=== PATIENT | male | born 1960 | race Caucasian/White ===

== ENCOUNTER 2017-01-11 10:29 | Emergency (ER) | payer BC ==
--- NOTE | 2017-01-11 11:22 | EDPHY ---
H & P Stated Complaint: seizure today/worked up for dizzyness/inner ear /was in [place] over weekend Time Seen by Provider: 01/11/17 11:19 HPI/ROS: HPI: 56-year-old male presents to emergency department with chief concern dizziness and concern for seizure. At work 1 hour prior to arrival he felt the whole room spin while seated, "my eyes felt like a slot machine going backward in my head, my face turned white, my hands turned deep purple and I got flushed. " Reports his entire body "straightened out". There was no loss of consciousness. He remembers the entire event however was "unable to see anything." This was witnessed by coworkers. Event lasted 30-45 seconds. Has had 1 year of dizziness he describes as room spinning 24/7, every day, worse with position change. ENT performed MRI of the head in the fall and has performed other workup including a inner ear stimulation test. Reports 3 hours of nausea, vomiting, diarrhea 6 days ago, and 2 weeks of mild cough and nasal congestion. ROS:10 point review of systems is negative other than as stated in HPI Source: Patient Exam Limitations: No limitations - Personal History Current Tetanus Diphtheria and Acellular Pertussis (TDAP): No - Medical/Surgical History Hx Asthma: No Hx Chronic Respiratory Disease: No Hx Diabetes: No Hx Cardiac Disease: No Hx Renal Disease: No Hx Cirrhosis: No Hx Alcoholism: No Hx HIV/AIDS: No Hx Splenectomy or Spleen Trauma: No Other PMH: htn - Family History Significant Family History: No pertinent family hx - Social History Smoking Status: Never smoked Alcohol Use: Rarely Drug Use: None Additional Social History: [employer] at a [employer], - Physical Exam Exam: Vital signs reviewed by me General: Awake, calm, cooperative. No acute distress. EENT: PERRLA. EOMI. No papilledema. no conjunctival injection or hemorrhage. TMs intact, translucent. No evidence of bleeding or otorrhea. Nasal septum midline, nasal mucosa pink. no evidence of drainage. Uvula midline, pharynx without redness. Resp: Breathing unlabored. Lungs clear to auscultation bilaterally. CV: HRR. S1S2. No MRG. GI: Abdomen soft, nontender. Bowel sounds normoactive and positive x4 quadrants. : No CVA tenderness. Skin: Warm, dry. No rashes noted. Capillary refill less than 2 seconds. Musculoskeletal: Strength equal and 5+ in all 4 extremities. Neuro: No focal neuro deficit. CN II through XII intact. Rapid alternating hand movements intact. Finger to nose intact. Heel to vazquez intact. Negative Romberg. Negative pronator drift. Gait even and steady. Memory and recall of 3/3 objects at 5 minutes intact. Upper and lower extremity DTRs 2+. Extremities: Full range of motion. Constitutional: Initial Vital Signs Temperature (C) 36.4 C 01/11/17 10:37 Heart Rate 88 01/11/17 10:37 Respiratory Rate 20 01/11/17 10:37 Blood Pressure 140/87 H 01/11/17 10:37 O2 Sat (%) 92 01/11/17 10:37 O2 Delivery Mode Room Air Allergies/Adverse Reactions: Penicillins Allergy (Verified 01/11/17 10:37) Home Medications: Medication Instructions Recorded Bp Med 01/11/17 Medical Decision Making ED Course/Re-evaluation: 56-year-old male presents to emergency department with symptoms that clinically sound like vertigo however there is concern for possible seizure activity. He has no history of seizure activity. He has a history of ongoing vertigo x1 year for which he is being evaluated by ENT. Vitals are stable. He is in seizure precautions presently. CT of the head will be performed. EKG, labs, chest x-ray all pending. Orthostatic vital signs pending. EKG shows a sinus rhythm without evidence of ischemia or dysrhythmia. Normal intervals, no axis deviation. Chest x-ray negative for anything acute. White count 9750. Metabolic panel largely unremarkable. Patient is not orthostatic. CT head negative. Patient has been counseled on will follow up with primary care tomorrow for recheck without fail. He agrees to do so. is present for this conversation. They have been counseled to return to emergency department should symptoms worsen in any way. Differential Diagnosis: Differential diagnosis includes but is not limited to BPPV, seizure, intracranial lesion, metabolic derangement, infection, - Data Points Laboratory Results: Laboratory Results 01/11/17 11:47 01/11/17 11:47 01/11/17 01/11/17 11:47 11:47 WBC 9.75 10^3/uL H 10^3/uL (3.80-9.50) RBC 5.28 10^6/uL 10^6/uL (4.40-6.38) Hgb 17.2 g/dL g/dL (13.7-17.5) Hct 48.4 % % (40.0-51.0) MCV 91.7 fL fL (81.5-99.8) MCH 32.6 pg pg (27.9-34.1) MCHC 35.5 g/dL g/dL (32.4-36.7) RDW 11.9 % % (11.5-15.2) Plt Count 207 10^3/uL 10^3/uL (150-400) MPV 12.0 fL H fL (8.7-11.7) Neut % (Auto) 70.9 % % (39.3-74.2) Lymph % (Auto) 17.6 % % (15.0-45.0) [place] % (Auto) 9.5 % % (4.5-13.0) Eos % (Auto) 1.2 % % (0.6-7.6) Baso % (Auto) 0.5 % % (0.3-1.7) Nucleat RBC Rel Count 0.0 % % (0.0-0.2) Absolute Neuts (auto) 6.90 10^3/uL H 10^3/uL (1.70-6.50) Absolute Lymphs (auto) 1.72 10^3/uL 10^3/uL (1.00-3.00) Absolute Monos (auto) 0.93 10^3/uL H 10^3/uL (0.30-0.80) Absolute Eos (auto) 0.12 10^3/uL 10^3/uL (0.03-0.40) Absolute Basos (auto) 0.05 10^3/uL 10^3/uL (0.02-0.10) Absolute Nucleated RBC 0.00 10^3/uL 10^3/uL (0-0.01) Immature Gran % 0.3 % % (0.0-1.1) Immature Gran # 0.03 10^3/uL 10^3/uL (0.00-0.10) Sodium 141 mEq/L mEq/L (134-144) Potassium 4.3 mEq/L mEq/L (3.5-5.2) Chloride 103 mEq/L mEq/L (97-110) Carbon Dioxide 26 mEq/l mEq/l (22-31) Anion Gap 12 mEq/L mEq/L (8-16) BUN 19 mg/dL mg/dL (7-23) Creatinine 0.9 mg/dL mg/dL (0.7-1.3) Estimated GFR > 60 Glucose 113 mg/dL H mg/dL (70-100) Calcium 9.7 mg/dL mg/dL (8.5-10.4) Departure - Departure Disposition: Home, Routine, Self-Care Clinical Impression: Vertigo Condition: Good Instructions: Vertigo (ED) Additional Instructions: Plan: Please follow up with primary care tomorrow for recheck without fail--When you call to schedule appointment, please let the office know you are an "ER follow up" appointment" Chest x-ray negative for evidence of pneumonia For worsening symptoms return to emergency department promptly Referrals: Frandy Guerrero MD [Primary Care Provider] - As per Instructions
--- NOTE | 2017-01-11 11:41 | CPEKG ---
Heart Rate: 88 RR Interval: 682 P-R Interval: 144 QRSD Interval: 96 QT Interval: 372 QTC Interval: 450 P Alba: 48 QRS Alba: 49 T Wave Alba: 30 EKG Severity - NORMAL ECG - EKG Impression: SINUS RHYTHM Electronically Signed By: Philip Kern 11-Jan-2017 14:21:20
[2017-01-11 11:49] LABS: % IMMATURE GRANULYOCYTES 0.3 % (0.0-1.1); ABSOLUTE IMMATURE GRANULOCYTES 0.03 10^3/uL (0.00-0.10); ADD DIFF? NO; ADD MORPH? NO; ADD SCAN? NO; ATYPICAL LYMPHOCYTE FLAG 0 (0-99); FRAGMENT RBC FLAG 0 (0-99); HEMATOCRIT 48.4 % (40.0-51.0); HEMOGLOBIN 17.2 g/dL (13.7-17.5); LEFT SHIFT FLG 0 (0-99); LIPEMIA HEMOLYSIS FLAG 90 (0-99); MEAN CELL HEMOGLOBIN 32.6 pg (27.9-34.1); MEAN CELL HEMOGLOBIN CONCENTR. 35.5 g/dL (32.4-36.7); MEAN CELL VOLUME 91.7 fL (81.5-99.8); PLATELET CLUMPS FLAG 30 (0-99); PLATELET COUNT 207 10^3/uL (150-400); RED BLOOD CELL COUNT 5.28 10^6/uL (4.40-6.38); RED CELL DISTRIBUTION WIDTH 11.9 % (11.5-15.2)
[2017-01-11 12:19] LABS: ANION GAP 12 mEq/L (8-16); CALCIUM 9.7 mg/dL (8.5-10.4); CARBON DIOXIDE 26 mEq/l (22-31); CHLORIDE 103 mEq/L (97-110); CREATININE 0.9 mg/dL (0.7-1.3); GLOMERULAR FILTRATION RATE > 60; GLUCOSE 113 mg/dL (70-100); POTASSIUM 4.3 mEq/L (3.5-5.2); SODIUM 141 mEq/L (134-144)
[2017-01-11 12:51] VITALS: RESP 14; TEMP 98.4; O2SAT 94
[2017-01-11 13:24] VITALS: BP 112/78; PULSE 70
== END 2017-01-11 13:23 | disposition home or self-care (01) ==
DX: R42 Dizziness and giddiness (principal); I10 Essential (primary) hypertension

== ENCOUNTER 2017-07-14 06:08 | Emergency (ER) | payer BC ==
[2017-07-14 06:14] VITALS: TEMP 98.4
[2017-07-14 07:03] LABS: % IMMATURE GRANULYOCYTES 0.4 % (0.0-1.1); ABSOLUTE IMMATURE GRANULOCYTES 0.05 10^3/uL (0.00-0.10); ADD DIFF? NO; ADD MORPH? NO; ADD SCAN? NO; ATYPICAL LYMPHOCYTE FLAG 0 (0-99); FRAGMENT RBC FLAG 0 (0-99); HEMATOCRIT 46.7 % (40.0-51.0); HEMOGLOBIN 16.8 g/dL (13.7-17.5); LEFT SHIFT FLG 0 (0-99); LIPEMIA HEMOLYSIS FLAG 90 (0-99); MEAN CELL HEMOGLOBIN 33.2 pg (27.9-34.1); MEAN CELL VOLUME 92.3 fL (81.5-99.8); PLATELET CLUMPS FLAG 0 (0-99); PLATELET COUNT 215 10^3/uL (150-400); RED BLOOD CELL COUNT 5.06 10^6/uL (4.40-6.38); RED CELL DISTRIBUTION WIDTH 11.9 % (11.5-15.2)
[2017-07-14] MEDS ORDERED: NS 1,000 ML IV ONE (07:06)
[2017-07-14] MEDS ORDERED: ONDANSETRON 4 MG/2 ML VIAL IVP ONE (07:06)
[2017-07-14] MEDS ORDERED: ONDANSETRON 4 MG/2 ML VIAL ONE (07:07)
--- NOTE | 2017-07-14 07:11 | EDPHY ---
HPI/HX/ROS/PE/MDM Narrative: CHIEF COMPLAINT: Nausea, vomiting HPI: This patient is a 56 year old male complaining of nausea and vomiting onset around 3:00am yesterday morning. He has not been able to stop vomiting or dry heaving since that time, and has an episode about once an hour. He has an associated cough which he attributes to reflux. He endorses loose stool, but no blood in his emesis or stool. He has abdominal discomfort which he describes as a severe bloating feeling. This bloated sensation usually heralds his nausea and vomiting. He has had several similar episodes in the past, but only lasting around six hours, and he has never been hospitalized for stomach problems. This is the worst and longest-lasting. He has not seen a GI specialist for these symptoms. He had a lower endoscopy earlier this year which discovered seven polyps, but he has not had an upper endoscopy. He has history of an umbilical surgery at 15 y/o, but denies any other abdominal surgeries. He denies fever, recent cough or cold, chest pain, shortness of breath, or other associated symptoms. REVIEW OF SYSTEMS: Aside from elements discussed in the HPI, a comprehensive 10-point review of systems was reviewed and is negative. PMH: Hypertension, anxiety, vertigo. SOCIAL HISTORY: . at bedside. Lives in [place]. PHYSICAL EXAM: General:Patient is alert, in no acute distress. ENT:Eyes are normal to inspection. ENT inspection normal. Neck: Normal inspection. Full range of motion. Respiratory:No respiratory distress. Breath sounds normal bilaterally. Cardiovascular: Regular rate and rhythm. Strong peripheral pulses. Normal cap refill. Abdomen: Mild epigastric tenderness. There are no peritoneal signs. There are normal bowel sounds. Back: Normal to inspection. No tenderness to palpation. Skin: Normal color. No rash. Warm and dry. Extremities: Normal appearance. Full range of motion. Neuro: Oriented x3. Normal motor function. Normal sensory function. ED Course: 56 year old male presents with 28 hour history of nausea and vomiting and associated bloated sensation. Physical exam reveals mild epigastric tenderness. Plan for x-ray of abdomen and labs including BMP, lipase, UA. IV established. Plan to administer 4mg IV Zofran and 1L IV NS for symptom relief. X-ray of the abdomen appears normal, no evidence of bowel obstruction. Labs within normal limits. No evidence of decreased liver, renal, or pancreatic function. 07:55 Reassessed patient. Discussed results. I recommend followup with a GI specialist. Given normal lab work and x-ray, I do not feel an abdominal CT is warranted at this time. The patient is feeling better and is comfortable not doing a CT. Plan to discharge home in good condition with a prescription for Zofran and referral to gastroenterology. Follow up and return precautions discussed. The patient and his are comfortable with this plan. - Data Points Imaging: I viewed and interpreted images myself Laboratory Results: Laboratory Results 07/14/17 06:42 07/14/17 06:42 07/14/17 07/14/17 07/14/17 07:45 06:42 06:42 WBC 12.38 10^3/uL H 10^3/uL (3.80-9.50) RBC 5.06 10^6/uL 10^6/uL (4.40-6.38) Hgb 16.8 g/dL g/dL (13.7-17.5) Hct 46.7 % % (40.0-51.0) MCV 92.3 fL fL (81.5-99.8) MCH 33.2 pg pg (27.9-34.1) MCHC 36.0 g/dL g/dL (32.4-36.7) RDW 11.9 % % (11.5-15.2) Plt Count 215 10^3/uL 10^3/uL (150-400) MPV 12.0 fL H fL (8.7-11.7) Neut % (Auto) 80.9 % H % (39.3-74.2) Lymph % (Auto) 12.6 % L % (15.0-45.0) [place] % (Auto) 5.9 % % (4.5-13.0) Eos % (Auto) 0.0 % L % (0.6-7.6) Baso % (Auto) 0.2 % L % (0.3-1.7) Nucleat RBC Rel Count 0.0 % % (0.0-0.2) Absolute Neuts (auto) 10.01 10^3/uL H 10^3/uL (1.70-6.50) Absolute Lymphs (auto) 1.56 10^3/uL 10^3/uL (1.00-3.00) Absolute Monos (auto) 0.73 10^3/uL 10^3/uL (0.30-0.80) Absolute Eos (auto) 0.00 10^3/uL L 10^3/uL (0.03-0.40) Absolute Basos (auto) 0.03 10^3/uL 10^3/uL (0.02-0.10) Absolute Nucleated RBC 0.00 10^3/uL 10^3/uL (0-0.01) Immature Gran % 0.4 % % (0.0-1.1) Immature Gran # 0.05 10^3/uL 10^3/uL (0.00-0.10) Sodium 140 mEq/L mEq/L (134-144) Potassium 3.7 mEq/L mEq/L (3.5-5.2) Chloride 100 mEq/L mEq/L (97-110) Carbon Dioxide 25 mEq/l mEq/l (22-31) Anion Gap 15 mEq/L mEq/L (8-16) BUN 21 mg/dL mg/dL (7-23) Creatinine 0.8 mg/dL mg/dL (0.7-1.3) Estimated GFR > 60 Glucose 146 mg/dL H mg/dL (70-100) Calcium 9.8 mg/dL mg/dL (8.5-10.4) Lipase 118 IU/L IU/L (23-300) Urine Color YELLOW Urine Appearance CLEAR Urine pH 7.0 (5.0-7.5) Ur Specific [place] 1.005 (1.002-1.030) Urine Protein NEGATIVE (NEGATIVE) Urine Ketones NEGATIVE (NEGATIVE) Urine Blood NEGATIVE (NEGATIVE) Urine Nitrate NEGATIVE (NEGATIVE) Urine Bilirubin NEGATIVE (NEGATIVE) Urine Urobilinogen NEGATIVE EU EU (0.2-1.0) Ur Leukocyte Esterase NEGATIVE (NEGATIVE) Urine Glucose NEGATIVE (NEGATIVE) Medications Given: Discontinued Medications Sodium Chloride (Ns) 1,000 mls @ 0 mls/hr IV EDNOW ONE; Wide Open PRN Reason: Protocol Stop: 07/14/17 07:07 Last Admin: 07/14/17 07:13 Dose: 1,000 mls Ondansetron HCl (Zofran) 4 mg IVP EDNOW ONE Stop: 07/14/17 07:07 Last Admin: 07/14/17 07:13 Dose: 4 mg General Time Seen by Provider: 07/14/17 06:52 Initial Vital Signs: Initial Vital Signs Temperature (C) 36.9 C 07/14/17 06:12 Heart Rate 83 07/14/17 06:12 Respiratory Rate 16 07/14/17 06:12 Blood Pressure 166/93 H 07/14/17 06:12 O2 Sat (%) 91 L 07/14/17 06:12 O2 Delivery Mode Room Air Allergies/Adverse Reactions: Penicillins Allergy (Verified 01/11/17 10:37) Home Medications: Medication Instructions Recorded Bp Med 01/11/17 Ondansetron Odt [Zofran Odt] 4 mg PO Q4PRN PRN #10 tab 07/14/17 Departure - Departure Disposition: Home, Routine, Self-Care Clinical Impression: Nausea & vomiting Condition: Good Instructions: Acute Nausea and Vomiting (ED) Additional Instructions: 1. Follow up with a gastroenterology specialist in the next week for continued evaluation of your symptoms. We have referred you to our GI specialist telephone information supervisor. 2. Take your Zofran as prescribed as needed for nausea. 3. Return to the Emergency Department for uncontrollable vomiting or diarrhea, fever, increased abdominal pain, or other worsening of condition. Referrals: Frandy Guerrero MD [Primary Care Provider] - As per Instructions Maurice Pardo MD [Medical Doctor] - As per Instructions Prescriptions: Ondansetron Odt [Zofran Odt] 4 mg PO Q4PRN PRN #10 tab PRN Reason: Nausea Report Scribed for: Philip Kern Report Scribed by: Mallika Pacheco Time of Report: 07:11 Physician Review and Approval Statement: Portions of this note were transcribed by an ED scribe. I personally performed the history, physical exam, and medical decision making; and confirm the accuracy of the information in the transcribed note.
[2017-07-14 07:12] VITALS: RESP 18
[2017-07-14 07:15] LABS: ANION GAP 15 mEq/L (8-16); CALCIUM 9.8 mg/dL (8.5-10.4); CARBON DIOXIDE 25 mEq/l (22-31); CHLORIDE 100 mEq/L (97-110); CREATININE 0.8 mg/dL (0.7-1.3); GLOMERULAR FILTRATION RATE > 60; GLUCOSE 146 mg/dL (70-100); POTASSIUM 3.7 mEq/L (3.5-5.2); SODIUM 140 mEq/L (134-144)
[2017-07-14 07:51] LABS: COLOR YELLOW; LEUKOCYTE ESTERASE,URINE NEGATIVE (NEGATIVE); NITRITE,URINE NEGATIVE (NEGATIVE)
[2017-07-14 08:24] VITALS: BP 145/80; PULSE 78; O2SAT 95
== END 2017-07-14 08:30 | disposition home or self-care (01) ==
DX: R11.2 Nausea with vomiting, unspecified (principal); I10 Essential (primary) hypertension; E86.9 Volume depletion, unspecified
CPT/HCPCS: 96374; J2405